=== PATIENT | female | born 1950 | race American Indian/Alaskan Native ===

== ENCOUNTER 2017-08-06 14:03 | Emergency (ER) | payer MEDICARE ==
[2017-08-06 15:40] VITALS: BP 113/53
[2017-08-06 15:52] LABS: Eosinophils # (Auto) 0.1 K/mm3 (0.0-0.4); Eosinophils % (Auto) 0.9 % (0.0-4.3); Monocytes # (Auto) 0.7 K/mm3 (0.0-0.8); Monocytes % (Auto) 9.3 % (0.0-7.3)
[2017-08-06 16:13] LABS: Alanine Aminotransferase 10 units/L (7-56); BUN/Creatinine Ratio 13; Blood Urea Nitrogen 9 mg/dL (7-17); Calcium 8.3 mg/dL (8.4-10.2); Hemolysis Index 6
[2017-08-06 16:17] LABS: Basophils % (Auto) 0.4 % (0.0-1.8); Hematocrit 39.4 % (30.3-42.9); Hemoglobin 12.2 gm/dl (10.1-14.3); Lymphocytes # (Auto) 2.2 K/mm3 (1.2-5.4); Lymphocytes % (Auto) 26.6 % (13.4-35.0); Mean Corpuscular HGB Conc 31 % (30-34); Mean Corpuscular Volume 77 fl (79-97); Platelet Count 268 K/mm3 (140-440); Red Cell Distribution Width 15.3 % (13.2-15.2)
[2017-08-06 16:18] LABS: Mean Corpuscular Hemoglobin 24 pg (28-32)
[2017-08-06] MEDS ORDERED: ASPIRIN PO ONE (16:21)
--- NOTE | 2017-08-06 16:22 | Emergency Department Report ---
HPI - General Chief Complaint: Chest Pain Time Seen by Provider: 08/06/17 16:20 - HPI HPI: 67-year-old -[place] female presents to the ED with chest pain chest pain, onset 1 day prior to evaluation while at rest, Location: mid chest Radiation: none, Severity now (0-10): 2, Severity at worst (0-10): 8 Duration: 5 minutes characterized as: sharp. The pain is relieved with aspirin, Patient denies exertional pain, patient denies pleuritic pain. Patient denies associated symptoms, such as nausea/vomiting, no diaphoresis, no shortness of breath. ED Past Medical Hx - Past Medical History Hx Hypertension: No Hx CVA: No - Medications Home Medications: Home Medications Medication Instructions Recorded Confirmed Last Taken Type ALPRAZolam [Xanax TAB] 0.25 mg PO BID PRN 08/06/17 08/06/17 Unknown History Atenolol [Tenormin] 25 mg PO DAILY 08/06/17 08/06/17 Unknown History Dextromethorphan/Benzocaine 1 each PO TID PRN 08/06/17 08/06/17 Unknown History [Cepacol Sorethroat-Cough Andre] Donepezil [Aricept] 10 mg PO QDAY 08/06/17 08/06/17 Unknown History Levothyroxine [Synthroid] 125 mcg PO QAM 08/06/17 08/06/17 Unknown History Memantine HCl [Namenda Xr] 28 mg PO DAILY 08/06/17 08/06/17 Unknown History Sertraline [Zoloft] 100 mg PO QDAY 08/06/17 08/06/17 Unknown History Simvastatin [Zocor TAB] 20 mg PO QHS 08/06/17 08/06/17 Unknown History lamoTRIgine [LaMICtal] 25 mg PO QDAY 08/06/17 08/06/17 Unknown History ED Review of Systems ROS: Stated complaint: LOW BP/DIZZINESS Other details as noted in HPI Comment: All other systems reviewed and negative ENT: denies: ear pain Respiratory: denies: cough Cardiovascular: chest pain Physical Exam - Physical Exam Vital Signs: Vital Signs 08/06/17 15:18 Temperature 98.6 F Pulse Rate 78 Respiratory 16 Rate Blood Pressure 113/53 [Right] O2 Sat by Pulse 100 Oximetry Physical Exam: - Physical Exam Physical Exam: - General Limitations: No Limitations General appearance: alert, in no apparent distress, obese - Head Head exam: Present: atraumatic, normocephalic - Eye Eye exam: Present: normal appearance - ENT ENT exam: Present: mucous membranes moist - Neck Neck exam: Present: normal inspection - Respiratory Respiratory exam: Present: normal lung sounds bilaterally. Absent: respiratory distress - Cardiovascular Cardiovascular Exam: Present: normal rhythm, tachycardia. Absent: systolic murmur, diastolic murmur, rubs, gallop - GI/Abdominal GI/Abdominal exam: Present: soft, normal bowel sounds - Extremities Exam Extremities exam: Present: normal inspection - Back Exam Back exam: Present: normal inspection - Neurological Exam Neurological exam: Present: alert, oriented X3 - Psychiatric Psychiatric exam: normal affect and mood - Skin Skin exam: Present: warm, dry, intact, normal color. Absent: rash ED Course Vital Signs 08/06/17 15:18 Temperature 98.6 F Pulse Rate 78 Respiratory 16 Rate Blood Pressure 113/53 [Right] O2 Sat by Pulse 100 Oximetry - Reevaluation(s) Reevaluation #1: 08/06/17 23:52 D-dimer was elevated, but patient refuses VQ scan. Admission was recommended but patient refused. ED Medical Decision Making - Lab Data Result diagrams: 08/06/17 15:31 08/06/17 15:31 Critical care attestation.: If time is entered above; I have spent that time in minutes in the direct care of this critically ill patient, excluding procedure time. ED Disposition Clinical Impression: Atypical chest pain Disposition: DC-01 TO HOME OR SELFCARE Is pt being admited?: No Does the pt Need Aspirin: No Condition: Stable Instructions: Chest Pain (ED) Referrals: PRIMARY CARE, [Primary Care Provider] - 3-5 Days
--- NOTE | 2017-08-06 21:01 | XRay Report ---
FINAL REPORT PROCEDURE: XR CHEST 1V AP TECHNIQUE: Chest radiograph anteroposterior view. CPT 61958 HISTORY: chest pain COMPARISON: No prior studies are available for comparison. FINDINGS: Heart: Normal. Mediastinum/Vessels: Normal. Lungs/Pleural space: Lungs are expanded and clear. There are no infiltrates, effusions or pneumothoraces.. Bony thorax: No acute osseous abnormality. Life support devices: None. IMPRESSION: No acute cardiopulmonary abnormality.
== END 2017-08-07 03:46 | disposition home or self-care (01) ==
LOC: EDBD 14:03 → ED 14:03
DX: R07.89 Other chest pain (principal)
CPT/HCPCS: 36415; 71045; 80053; 82550; 84484; 85025; 85379; 93005; 93010; 99285

== ENCOUNTER 2017-08-26 20:53 | Inpatient (IN) | payer MEDICARE ==
[2017-08-26] MEDS ORDERED: NITROSTAT SL ONE (21:19)
[2017-08-26] MEDS ORDERED: BABY ASPIRIN PO ONE (21:19)
--- NOTE | 2017-08-26 21:24 | Emergency Department Report ---
ED Chest Pain HPI - General Chief Complaint: Chest Pain Stated Complaint: CHEST PAIN Time Seen by Provider: 08/26/17 21:06 Source: patient, EMS Mode of arrival: Stretcher Limitations: No Limitations - History of Present Illness Initial Comments: 67-year-old female history of dementia lives in [facility] states she does have a history of high blood pressure in the past currently only on medicines for her thyroid and dementia with a retrosternal and left-sided chest pain off and on for 2 days question of exertional .patient is otherwise a poor historian and is unable to a complete review of systems, she was seen in the ED here a month ago for similar symptoms and apparently refused further workup and admission. dreturns today w/ recurrent cp to mid and left chest. ? sob, no radiation, ?leg pain, no hx dvt/pe per pt but pt w/ hx of dementia and is poor hx -: Gradual, hour(s), days(s), unknown Onset: during rest, during exertion Pain Location: substernal, left chest Pain Radiation: none Severity: mild, moderate Severity scale (0 -10): 5 Quality: tightness, heaviness Consistency: intermittent Improves With: nitroglycerin Worsens With: exertion - Related Data Home Medications Medication Instructions Recorded Confirmed Last Taken ALPRAZolam [Xanax TAB] 0.25 mg PO BID PRN 08/06/17 08/06/17 Unknown Atenolol [Tenormin] 25 mg PO DAILY 08/06/17 08/06/17 Unknown Dextromethorphan/Benzocaine 1 each PO TID PRN 08/06/17 08/06/17 Unknown [Cepacol Sorethroat-Cough Andre] Donepezil [Aricept] 10 mg PO QDAY 08/06/17 08/06/17 Unknown Levothyroxine [Synthroid] 125 mcg PO QAM 08/06/17 08/06/17 Unknown Memantine HCl [Namenda Xr] 28 mg PO DAILY 08/06/17 08/06/17 Unknown Sertraline [Zoloft] 100 mg PO QDAY 08/06/17 08/06/17 Unknown Simvastatin [Zocor TAB] 20 mg PO QHS 08/06/17 08/06/17 Unknown lamoTRIgine [LaMICtal] 25 mg PO QDAY 08/06/17 08/06/17 Unknown Allergies Allergy/AdvReac Type Severity Reaction Status Date / Time No Known Allergies Allergy Unverified 08/06/17 15:20 Heart Score - HEART Score History: Moderately suspicious EKG: Normal Age: > 65 Risk factors: 1-2 risk factors Troponin: < normal limit HEART Score: 4 ED Review of Systems ROS: Stated complaint: CHEST PAIN Other details as noted in HPI Comment: All other systems reviewed and negative Constitutional: denies: diaphoresis, fever, malaise ENT: denies: dental pain, hearing loss, epistaxis Respiratory: denies: shortness of breath, SOB with exertion, SOB at rest, stridor Cardiovascular: chest pain. denies: palpitations, orthopnea, edema, syncope Gastrointestinal: denies: abdominal pain, nausea, vomiting, diarrhea, constipation, hematemesis, melena, hematochezia Neurological: headache. denies: weakness, numbness, paresthesias, confusion, abnormal gait, vertigo ED Past Medical Hx - Past Medical History Previous Medical History?: Yes Hx Hypertension: No Hx CVA: No Hx Diabetes: Yes Hx Psychiatric Treatment: Yes (anxiety, depression) Additional medical history: Dementia - Surgical History Past Surgical History?: Yes Additional Surgical History: thyroid, hysterectomy - Social History Smoking Status: Never Smoker Substance Use Type: None - Medications Home Medications: Home Medications Medication Instructions Recorded Confirmed Last Taken Type ALPRAZolam [Xanax TAB] 0.25 mg PO BID PRN 08/06/17 08/06/17 Unknown History Atenolol [Tenormin] 25 mg PO DAILY 08/06/17 08/06/17 Unknown History Dextromethorphan/Benzocaine 1 each PO TID PRN 08/06/17 08/06/17 Unknown History [Cepacol Sorethroat-Cough Andre] Donepezil [Aricept] 10 mg PO QDAY 08/06/17 08/06/17 Unknown History Levothyroxine [Synthroid] 125 mcg PO QAM 08/06/17 08/06/17 Unknown History Memantine HCl [Namenda Xr] 28 mg PO DAILY 08/06/17 08/06/17 Unknown History Sertraline [Zoloft] 100 mg PO QDAY 08/06/17 08/06/17 Unknown History Simvastatin [Zocor TAB] 20 mg PO QHS 08/06/17 08/06/17 Unknown History lamoTRIgine [LaMICtal] 25 mg PO QDAY 08/06/17 08/06/17 Unknown History ED Physical Exam - General Limitations: No Limitations General appearance: alert, anxious - Head Head exam: Present: atraumatic, normocephalic - Eye Eye exam: Present: PERRL, EOMI - ENT ENT exam: Present: normal exam - Neck Neck exam: Present: normal inspection. Absent: tenderness, meningismus - Respiratory Respiratory exam: Present: normal lung sounds bilaterally. Absent: respiratory distress, wheezes, rales, rhonchi, stridor, chest wall tenderness, accessory muscle use, decreased breath sounds - Cardiovascular Cardiovascular Exam: Present: regular rate, normal rhythm, normal heart sounds. Absent: bradycardia, rubs, gallop - GI/Abdominal GI/Abdominal exam: Present: soft. Absent: tenderness, guarding, rebound, mass, bruit, pulsatile mass - Extremities Exam Extremities exam: Present: normal inspection. Absent: pedal edema, calf tenderness - Back Exam Back exam: Present: normal inspection. Absent: CVA tenderness (L), muscle spasm , paraspinal tenderness, vertebral tenderness - Neurological Exam Neurological exam: Present: alert, CN II-XII intact, other (awake and alert but disoriented history of dementia). Absent: motor sensory deficit - Skin Skin exam: Absent: cyanosis, diaphoretic, erythema, urticaria, vesicles, petechiae ED Course Vital Signs 08/26/17 08/26/17 08/26/17 21:11 21:54 22:00 Temperature 97.9 F Pulse Rate 71 72 67 Respiratory 12 14 Rate Blood Pressure 112/56 115/54 120/62 O2 Sat by Pulse 100 100 Oximetry 08/26/17 08/27/17 08/27/17 23:00 00:00 01:00 Temperature Pulse Rate 81 73 Respiratory 13 12 Rate Blood Pressure 133/50 122/58 128/66 O2 Sat by Pulse 100 100 100 Oximetry ZEESHAN score - Zeeshan Score Age > 65: (1) Yes Aspirin use within the Past 7 Days: (1) Yes 3 or more CAD Risk Factors: (0) No 2 or more Angina events in past 24 hrs: (1) Yes Known CAD with more than 50% Stenosis: (0) No Elevated Cardiac Markers: (0) No ST Deviation Greater than 0.5mm: (0) No ZEESHAN Score: 3 ED Medical Decision Making - Lab Data Result diagrams: 08/26/17 21:30 08/26/17 21:30 - EKG Data -: EKG Interpreted by Me EKG shows normal: sinus rhythm Rate: normal - EKG Data Interpretation: other (no acute ischemic change) - Radiology Data Radiology results: report reviewed - Medical Decision Making Patient is having intermittent chest pain or rales she signed out AMA in July she is back today with a exertional and the rest heaviness to the left chest and retrosternally plus equal d-dimer is negative she has not had a cardiac workup that I have access to. At this point I'm she will need admission for further evaluation of chest pain. She does have risk factors and the history is worrisome for angina case was discussed with Dr. Quintana hospitalist service for admit Critical care attestation.: If time is entered above; I have spent that time in minutes in the direct care of this critically ill patient, excluding procedure time. ED Disposition Clinical Impression: Chest pain Disposition: DC-09 OP ADMIT IP TO THIS HOSP Is pt being admited?: Yes Condition: Stable Instructions: Chest Pain (ED) Time of Disposition: 02:27
[2017-08-26 21:47] LABS: Basophils % (Auto) 0.4 % (0.0-1.8); Eosinophils # (Auto) 0.1 K/mm3 (0.0-0.4); Eosinophils % (Auto) 1.9 % (0.0-4.3); Lymphocytes # (Auto) 3.1 K/mm3 (1.2-5.4); Lymphocytes % (Auto) 39.7 % (13.4-35.0); Mean Corpuscular HGB Conc 30 % (30-34); Mean Corpuscular Volume 78 fl (79-97); Monocytes # (Auto) 0.9 K/mm3 (0.0-0.8); Monocytes % (Auto) 11.5 % (0.0-7.3); Platelet Count 217 K/mm3 (140-440); Red Blood Count 4.53 M/mm3 (3.65-5.03); Red Cell Distribution Width 15.4 % (13.2-15.2)
[2017-08-26 21:49] LABS: Hematocrit 35.5 % (30.3-42.9); Hemoglobin 10.6 gm/dl (10.1-14.3)
[2017-08-26 21:50] LABS: Mean Corpuscular Hemoglobin 23 pg (28-32)
[2017-08-26 21:52] LABS: INR 0.88 (0.87-1.13)
[2017-08-26 21:53] LABS: Partial Thromboplastin Time 30.5 Sec. (24.2-36.6)
[2017-08-26 22:01] LABS: Alanine Aminotransferase 12 units/L (7-56); Albumin 3.7 g/dL (3.9-5); BUN/Creatinine Ratio 18; Blood Urea Nitrogen 14 mg/dL (7-17); Calcium 7.8 mg/dL (8.4-10.2); Hemolysis Index 5; Lipase 125 units/L (13-60)
--- NOTE | 2017-08-26 22:08 | XRay Report ---
FINAL REPORT PROCEDURE: XR CHEST ROUTINE 2V TECHNIQUE: PA and lateral chest radiographs were obtained. CPT 56383 HISTORY: Chest Pain COMPARISON: 08/06/2017 FINDINGS: Heart: Normal. Mediastinum/Vessels: Normal. Lungs/Pleural space: Normal. Bony thorax: No acute osseous abnormality. Other: IMPRESSION: Normal examination.
[2017-08-27] MEDS ORDERED: ZOFRAN IV PRN (03:52)
[2017-08-27] MEDS ORDERED: TYLENOL PO PRN (03:52)
[2017-08-27] MEDS ORDERED: SODIUM CHLORIDE FLUSH SYRINGE 10 ML IV PRN (03:52)
--- NOTE | 2017-08-27 04:12 | History and Physical Report ---
History of Present Illness Date of examination: 08/27/17 History of present illness: 67-year-old woman with history of diet-controlled diabetes, dementia, hypothyroidism comes emergency room with complaints of chest pain which is located in the left chest.a she describes the pain as dull, intermittent in nature, unable to say how long it lasts her, intensity 4/10, no radiation, admits shortness of breath, denies nausea vomiting, diaphoresis or palpitation Review of systems Constitutional: no weight loss, chills Ears, eyes, nose, mouth and throat: no nasal congestion, no nasal discharge, no sinus pressure, no vision change, no red eye. Neck: No neck pain or rigidity. Cardiovascular: no palpitations Respiratory: No cough Gastrointestinal: no abdominal pain, hematochezia Genitourinary : no dysuria, frequency , no hematuria Musculoskeletal: no joint swelling or muscle ache Integumentary: no rash, no pruritis Neurological: no parathesias, no numbness, no focal weakness Endocrine: no cold or heat intolerance, no polyuria or polydipsia Hematologic/Lymphatic: no easy bruising, no easy :bleeding, no gland swelling Allergic/Immunologic: no urticaria, no angioedema. PAST MEDICAL HISTORY: Diet-controlled diabetes, hypothyroidism, dementia PAST SURGICAL HISTORY: Hysterectomy, knee surgery SOCIAL HISTORY: Denies alcohol, tobacco, drugs FAMILY HISTORY hypertension Medications and Allergies Allergies Allergy/AdvReac Type Severity Reaction Status Date / Time No Known Allergies Allergy Unverified 08/06/17 15:20 Home Medications Medication Instructions Recorded Confirmed Last Taken Type ALPRAZolam [Xanax TAB] 0.25 mg PO BID PRN 08/06/17 08/06/17 Unknown History Atenolol [Tenormin] 25 mg PO DAILY 08/06/17 08/06/17 Unknown History Dextromethorphan/Benzocaine 1 each PO TID PRN 08/06/17 08/06/17 Unknown History [Cepacol Sorethroat-Cough Andre] Donepezil [Aricept] 10 mg PO QDAY 08/06/17 08/06/17 Unknown History Levothyroxine [Synthroid] 125 mcg PO QAM 08/06/17 08/06/17 Unknown History Memantine HCl [Namenda Xr] 28 mg PO DAILY 08/06/17 08/06/17 Unknown History Sertraline [Zoloft] 100 mg PO QDAY 08/06/17 08/06/17 Unknown History Simvastatin [Zocor TAB] 20 mg PO QHS 08/06/17 08/06/17 Unknown History lamoTRIgine [LaMICtal] 25 mg PO QDAY 08/06/17 08/06/17 Unknown History Active Meds: Active Medications Acetaminophen (Tylenol) 650 mg PO Q4H PRN PRN Reason: Pain MILD(1-3)/Fever >100.5/YANG Enoxaparin Sodium (Lovenox) 30 mg SUB-Q QDAY МАРИНА Ondansetron HCl (Zofran) 4 mg IV Q8H PRN PRN Reason: Nausea And Vomiting Sodium Chloride (Sodium Chloride Flush Syringe 10 Ml) 10 ml IV BID МАРИНА Sodium Chloride (Sodium Chloride Flush Syringe 10 Ml) 10 ml IV PRN PRN PRN Reason: LINE FLUSH Exam - Physical Exam Narrative exam: Gen. appearance: Patient lying in bed, no apparent distress HEENT: Normocephalic, atraumatic, pupils equally round and reactive to light, extraocular movement intact, and no sclericterus,. No JVD or thyromegaly or nodule,neck supple, no carotid bruit ,mucous membranes moist, no exudate or erythema Heart: S1, S2, regular rate and rhythm Lungs: Clear to auscultation bilaterally, breathing comfortable Abdomen: Positive bowel sounds, nontender, nondistended, no organomegaly Extremity: No edema, cyanosis, clubbing Skin: No rash, nodules, warm, dry Neuro: Oriented 3, cranial nerves II-12 intact, speech is fluent, motor and sensory intact - Constitutional Vitals: Temp Pulse Resp BP Pulse Ox 97.9 F 68 24 118/66 100 08/26/17 21:11 08/27/17 03:00 08/27/17 03:00 08/27/17 03:00 08/27/17 03:00 Results - Labs CBC & Chem 7: 08/26/17 21:30 08/26/17 21:30 Labs: Abnormal lab results 08/26/17 08/26/17 Range/Units 21:30 21:30 MCV 78 L (79-97) fl MCH 23 L (28-32) pg RDW 15.4 H (13.2-15.2) % Lymph % (Auto) 39.7 H (13.4-35.0) % Rains % (Auto) 11.5 H (0.0-7.3) % Rains # 0.9 H (0.0-0.8) K/mm3 Calcium 7.8 L (8.4-10.2) mg/dL Albumin 3.7 L (3.9-5) g/dL Lipase 125 H (13-60) units/L - Imaging and Cardiology EKG: image reviewed Chest x-ray: image reviewed Assessment and Plan Assessment Chest pain Diet-controlled diabetes Dementia Hypothyroidism Plan Admit to medicine Check cardiac enzymes, stress test Check fingersticks, DVT prophylaxis
[2017-08-27] MEDS ORDERED: LEXISCAN IV ONE ×2 (08:53→08:55)
[2017-08-27] MEDS ORDERED: LOVENOX SUB-Q SCH (10:00)
[2017-08-27] MEDS ORDERED: SODIUM CHLORIDE FLUSH SYRINGE 10 ML IV SCH (10:00)
[2017-08-27 11:35] VITALS: BP 114/59
[2017-08-27] MEDS ORDERED: PNEUMOVAX 23 IM ONE (12:00)
[2017-08-27] MEDS ORDERED: Fluarix Quad 2017-2018(36 MOS+ IM ONE (12:00)
--- NOTE | 2017-08-27 15:36 | Discharge Summary ---
Providers - Providers Date of Admission: 08/27/17 03:57 Date of discharge: 08/27/17 Attending physician: GILDA LIRIANO Primary care physician: BATTERY CHECKER Hospitalization Condition: Stable Hospital course: (meditech crashed and i lost entire note, hopefully IT can recover it) Stress test negative -Chest pains, GERD related [facility] to [facility]. Disposition: DC/TX-70 ANOTHER TYPE HLTHCARE Time spent for discharge: 34 minutes Core Measure Documentation - Palliative Care Palliative Care/ Comfort Measures: Not Applicable - Core Measures Any of the following diagnoses?: none - VTE Discharge Requirements Deep Vein Thrombosis/Pulmonary Embolism Present on Admission: No Has pt received <5 days of overlap therapy or INR<2.0: No Anticoagulant overlap therapy prescribed at discharge: No Contraindication No Overlap Therapy order at DC: Not Indicated Exam - Physical Exam Narrative exam: nad a/o x 3 RRR CTA b Abd soft ntnd Neuro nonfocal. - Constitutional Vitals: Temp Pulse Resp BP Pulse Ox 98.1 F 63 20 114/59 98 08/27/17 06:12 08/27/17 12:57 08/27/17 06:12 08/27/17 09:35 08/27/17 06:12 General appearance: Present: no acute distress Plan Activity: up only with assistance, fall precautions, other (no stress activity) Diet: low salt, diabetic Special Instructions: record daily BP diary, record blood sugar diary Follow up with: [facility] [Provider Group] - 7 Days PRIMARY CARE, [Primary Care Provider] - 3-5 Days Prescriptions: Pantoprazole [Protonix] 40 mg PO QDAY #30 tablet
--- NOTE | 2017-08-28 12:58 | Treadmill Report ---
INDICATION: Chest pain. ORDERING PHYSICIAN: Maricel Patel MD FINDINGS: There is no scintigraphic evidence of myocardial ischemia. The left ventricle is normal in size and systolic function. The left ventricular ejection fraction is measured at 67%. Normal wall motion and wall thickening is noted on gated imaging. CONCLUSION: Normal perfusion scan. JOB# [id number] [place]/NTS
== END 2017-08-27 15:15 | disposition home or self-care (01) | DRG 392 ==
LOC: ED 20:53 → 4A 08-27 03:57
PROVIDERS: ADMIT Internal Medicine; ATTEND Internal Medicine
PROC: 3E0234Z Introduction of Serum, Toxoid and Vaccine into Muscle, Percutaneous Approach (ICD-10-PCS; principal; 2017-08-27)
DX: K21.9 Gastro-esophageal reflux disease without esophagitis (principal); E11.9 Type 2 diabetes mellitus without complications; F03.90 Unspecified dementia, unspecified severity, without behavioral disturbance, psychotic disturbance, mood disturbance, and anxiety; Z23 Encounter for immunization; F32.9 Major depressive disorder, single episode, unspecified; Z90.710 Acquired absence of both cervix and uterus; E03.9 Hypothyroidism, unspecified; Z82.49 Family history of ischemic heart disease and other diseases of the circulatory system
CPT/HCPCS: 36415; 71046; 78452; 80053; 82962; 83690; 84484; 85025; 85379; 85610; 85730; 90686; 90732; 93005; 93010; 93017; A9502; J1650; J2785